=== PATIENT | male | born 1955 | race Caucasian/White ===

== ENCOUNTER 2018-09-20 09:37 | Emergency (ER) | payer MEDICAID ==
[~2018-09-20] VITALS: Ht 167.6 cm; Wt 74.0 kg
--- NOTE | 2018-09-20 10:13 | NUR ---
PT AMBULATORY TO ROOM FROM LOBBY
[2018-09-20] MEDS ORDERED: LISI1TAB3 PO (10:34)
[2018-09-20] MEDS ORDERED: ALBUTEROL/IPRATROPIUM 2.5MG/0.5MG, 3 ML ONE (10:34)
[2018-09-20] MEDS ORDERED: CHOLESTEROL PO (10:34)
--- NOTE | 2018-09-20 10:34 | NUR ---
PT C/O 2 WEEKS OF STRONG NON-PROD COUGH. CHEST TIGHTNESS AND SOB WITH COUGHING. PT ON MONITORS, VSS AT THIS TIME AND DENIES CP. CALL LIGHT W/I REACH. PT IS PRIMARY [employer] SPEAKING REQUEST DAUGHTER TO INTERPRET.
--- NOTE | 2018-09-20 10:35 | NUR ---
DR CONCEPCION AT BEDSIDE. PT ASSESSMENT REV. AND ORDERS REC' D
[2018-09-20 10:51] LABS: BASOPHILS # (AUTO) 0.01 x10^3/uL (0-0.1); BASOPHILS % (AUTO) 0 % (0-1); EOSINOPHILS # (AUTO) 0.15 x10^3/uL (0-0.4); EOSINOPHILS % (AUTO) 2 % (1-7); LYMPHOCYTES # (AUTO) 1.32 x10^3/uL (1-3.4); LYMPHOCYTES % (AUTO) 14 % (22-44); MD NO; MEAN CORPUSCULAR HGB CONC 33.2 g/dL (33.2-36.2); MEAN CORPUSCULAR VOLUME 96.2 fL (81-97); MEAN PLATELET VOLUME 8.6 fL (7.4-10.4); MONOCYTES # (AUTO) 0.48 x10^3/uL (0.2-0.8); MONOCYTES % (AUTO) 5 % (2-9); NEUTROPHILS # (AUTO) 7.31 x10^3/uL (1.8-6.8); NEUTROPHILS % (AUTO) 79 % (42-75); PLATELET COUNT 284 x10^3/uL (130-400); RED BLOOD COUNT 4.42 x10^6/uL (4.38-5.82); RED CELL DISTRIBUTION WIDTH 12.9 % (9.4-14.8)
[2018-09-20] MEDS ORDERED: ALBUTEROL/IPRATROPIUM 2.5MG/0.5MG, 3 ML NEB ONE (11:00)
[2018-09-20] MEDS ORDERED: CEFTRIAXONE 1,000 MG IM ONE (11:00)
[2018-09-20 11:04] LABS: ALBUMIN 2.5 g/dL (3.4-5.0); ANION GAP 5 mmol/L (5-15); CALCIUM 8.6 mg/dL (8.5-10.1); CHLORIDE 110 mmol/L (98-107)
[2018-09-20] MEDS ORDERED: CEFTRIAXONE 1,000 MG ONE (11:09)
[2018-09-20] MEDS ORDERED: LIDOCAINE-MPF 1%, 5ML ONE (11:10)
[2018-09-20 11:11] LABS: ALANINE AMINOTRANSFERASE 162 U/L (12-78); ALKALINE PHOSPHATASE 88 U/L (45-117); BILIRUBIN,TOTAL 0.5 mg/dL (0.2-1.0); CREATININE 0.71 mg/dL (0.7-1.3); TOTAL PROTEIN 7.4 g/dL (6.4-8.2); TROPONIN I < 0.015 ng/mL (0.000-0.045)
[2018-09-20 12:24] VITALS: BP 121/86
--- NOTE | 2018-09-20 12:43 | NUR ---
Patient/Caregiver given discharge instructions and they have confirmed that they understand the instructions. Patient ambulatory with steady gait.
== END 2018-09-20 12:44 | disposition home or self-care (01) ==
LOC: ED 11:39
DX: J15.9 Unspecified bacterial pneumonia (principal); E78.5 Hyperlipidemia, unspecified; I10 Essential (primary) hypertension
CPT/HCPCS: 36415; 71046; 80053; 84484; 85025; 93005; 94640; 96372; 99284; J0696; J7620